=== PATIENT | male | born 1955 | race Caucasian/White ===

== ENCOUNTER → 2021-03-13 | Outpatient (CLI) | payer OTHER ==
--- NOTE | 2021-03-13 16:01 | RAD ---
EXAM: Cervical spine, 5 views. HISTORY: Pain. COMPARISON: None. FINDINGS: 5 views of the cervical spine are obtained. There is minimal multilevel degenerative listhe sis. There is endplate remodeling and disc space narrowing bilaterally at C4-C5 and C5-C6. There is m ultilevel facet arthropathy. There is foraminal narrowing predominantly at C4-C5 and C5-C6. There is no fracture. IMPRESSION: 1. Multilevel degenerative change, described above. 2. No acute osseous finding. Electronically signed by: Mindy Javier MD (03/13/2021 3:59 PM) [id number]
--- NOTE | 2021-03-13 16:05 | RAD ---
EXAM: Bilateral hands, 3 views. HISTORY: Edema. COMPARISON: None. FINDINGS: 3 views of both hands are obtained. There is no acute fracture, dislocation or subluxation. There are suspected small subchondral cysts involving the right greater than left carpal bones. Ther e is no osseous erosion or soft tissue calcification. There is a corticated ossicle along the dorsal aspect of the left wrist, likely a chronic nonunited fracture fragment. IMPRESSION: 1. No acute osseous finding. 2. Suspected small subchondral cysts involving the right greater than left carpal bones. Electronically signed by: Mindy Javier MD (03/13/2021 4:02 PM) [id number]
== END ==
LOC: RAD 15:16
PROVIDERS: ATTEND Internal Medicine
DX: M47.812 Spondylosis without myelopathy or radiculopathy, cervical region (principal); M48.02 Spinal stenosis, cervical region; M53.82 Other specified dorsopathies, cervical region; R60.0 Localized edema
CPT/HCPCS: 72050; 73130-50